=== PATIENT | female | born 1965 | race Caucasian/White ===

== ENCOUNTER → 2021-09-08 | Outpatient (CLI) | payer BC | LOC: HEART 5 11:39 | DX: J44.9 Chronic obstructive pulmonary disease, unspecified (principal); J02.9 Acute pharyngitis, unspecified; R10.13 Epigastric pain; R76.0 Raised antibody titer; R10.9 Unspecified abdominal pain | CPT/HCPCS: 94060; 94729; 95012 ==

== ENCOUNTER → 2022-01-01 | Outpatient (CLI) | payer BC | LOC: ECHO 12-31 11:45 → HEART 5 07:29 | DX: R07.9 Chest pain, unspecified (principal); R00.2 Palpitations; R06.02 Shortness of breath; R68.89 Other general symptoms and signs | CPT/HCPCS: 78452; 93306; A9502; J2785 ==